=== PATIENT | female | born 1950 | race Caucasian/White ===

== ENCOUNTER → 2017-05-25 | Outpatient (CLI) | payer BC ==
--- NOTE | 2017-05-25 11:24 | MM ---
Reason for exam: screening (asymptomatic). Last mammogram was performed 2 years and 5 months ago. History: Patient is postmenopausal and had first child at age 33. Took hormonal contraceptives for 11 years. Took estrogen for 3 years beginning at age 51. Physical Findings: A clinical breast exam by your physician is recommended on an annual basis and results should be correlated with mammographic findings. MG 3D Screening Mammo W/Cad Bilateral CC and MLO view(s) were taken. XCCL view(s) were taken of the left breast. Prior study comparison: December 25, 2014, bilateral MG screening mammo w CAD. October 20, 2013, bilateral digital screening mammo w/CAD. The breast tissue is almost entirely fat. There is chronic nodularity bilaterally. No significant changes when compared with prior studies. ASSESSMENT: Benign, BI-RAD 2 RECOMMENDATION: Routine screening mammogram of both breasts in 1 year.
== END | disposition home or self-care (01) ==
LOC: RADMAMWWP 07:19
PROVIDERS: ATTEND Family Medicine
DX: Z12.31 Encounter for screening mammogram for malignant neoplasm of breast (principal)
CPT/HCPCS: 77063; G0202

== ENCOUNTER → 2019-01-18 | Outpatient (CLI) | payer MEDICARE ==
--- NOTE | 2019-01-19 09:59 | MM ---
Reason for exam: screening (asymptomatic). Last mammogram was performed 1 year and 8 months ago. History: Patient is postmenopausal and had first child at age 33. Took hormonal contraceptives for 11 years. Took estrogen for 3 years beginning at age 51. Physical Findings: A clinical breast exam by your physician is recommended on an annual basis and results should be correlated with mammographic findings. MG 3D Screening Mammo W/Cad Bilateral CC and MLO view(s) were taken. Prior study comparison: May 25, 2017, bilateral MG 3d screening mammo w/cad. December 25, 2014, bilateral MG screening mammo w CAD. There are scattered fibroglandular densities. No significant changes when compared with prior studies. ASSESSMENT: Benign, BI-RAD 2 RECOMMENDATION: Routine screening mammogram of both breasts in 1 year.
== END | disposition home or self-care (01) ==
LOC: RADMAMWWP 07:12
PROVIDERS: ATTEND Family Medicine
DX: Z12.31 Encounter for screening mammogram for malignant neoplasm of breast (principal)
CPT/HCPCS: 77063; 77067

== ENCOUNTER → 2020-04-12 | Outpatient (CLI) | payer MEDICARE ==
--- NOTE | 2020-04-12 13:38 | CT ---
EXAMINATION TYPE: CT abdomen pelvis wo con DATE OF EXAM: 04/12/2020 HISTORY: Right sided flank pain CT DLP: 2645.1 mGycm. Automated Exposure Control for Dose Reduction was Utilized. TECHNIQUE: CT scan of the abdomen and pelvis is performed without oral or IV contrast. COMPARISON: Prior CT abdomen January 30, 2015 FINDINGS: Within the limitations of a non-contrast study, the following observations are made. LUNG BASES: No significant abnormality is appreciated. LIVER/GB: Cholecystectomy clips are redemonstrated. PANCREAS: No significant abnormality is seen. SPLEEN: No significant abnormality is seen. ADRENALS: No significant abnormality is seen. KIDNEYS: No renal stones or hydronephrosis is seen bilaterally. No intraluminal calculi in the poorly distended bladder. BOWEL: Stable small sized hiatal hernia. Scattered diverticula most prominent in the sigmoid colon. N o CT evidence for acute diverticulitis. Normal-appearing appendix from base of cecum. Metallic 5 mm d ensity near junction of third and portion of duodenum axial image 42 could reflect ingested foreign b alfonso or possible nondigested pill. Correlate clinically. GENITAL ORGANS: A few scattered pelvic phleboliths. Uterus surgically absent markedly atrophic. LYMPH NODES: No greater than 1cm abdominal or pelvic lymph nodes are appreciated. OSSEOUS STRUCTURES: Slight grade 1 anterolisthesis L3 on L4. Mild to moderate multilevel spurring in the lower thoracic spine. OTHER: Stable tiny fat-containing umbilical hernia. IMPRESSION: No renal stones or hydronephrosis is seen bilaterally. Source of right-sided flank pain n ot identified. Attention to duodenum as detailed above otherwise fairly unremarkable study.
== END | disposition home or self-care (01) ==
LOC: RADCTMAIN 11:28
PROVIDERS: ATTEND Family Medicine
DX: R10.9 Unspecified abdominal pain (principal)
CPT/HCPCS: 74176

== ENCOUNTER → 2021-10-13 | Outpatient (CLI) | payer MEDICARE ==
--- NOTE | 2021-10-13 12:08 | ECHOF ---
Referral Reason:I10 essential hypertention MEASUREMENTS -------- HEIGHT: 175.3 cm WEIGHT: 154.2 kg BP: 120/80 RVIDd: 2.9 cm (< 3.3) IVSd: 1.1 cm (0.6 - 1.1) LVIDd: 4.6 cm (3.9 - 5.3) LVPWd: 1.1 cm (0.6 - 1.1) IVSs: 1.9 cm LVIDs: 3.4 cm LVPWs: 1.8 cm LA Diam: 3.3 cm (2.7 - 3.8) LAESV Index (A-L): 18.67 ml/m Ao Diam: 3.2 cm (2.0 - 3.7) AV Cusp: 1.8 cm (1.5 - 2.6) MV EXCURSION: 19.783 mm (> 18.000) MV EF SLOPE: 87 mm/s (70 - 150) EPSS: 0.4 cm MV E Edilberto: 0.71 m/s MV DecT: 347 ms MV A Edilberto: 0.90 m/s MV E/A Ratio: 0.79 RAP: 5.00 mmHg RVSP: 19.96 mmHg FINDINGS -------- Sinus rhythm. This was a technically adequate study. The left ventricular size is normal. There is borderline concentric left ventricular hypertrophy. Overall left ventricular systolic function is normal with, an EF between 60 - 65 %. The right ventricle is normal in size. Normal LA size by volume 22+/-6 ml/m2. The right atrium is normal in size. Aneurysmal Interatrial septum. The aortic valve is trileaflet, and appears structurally normal. No aortic stenosis or regurgitation. The mitral valve is normal. Trace tricuspid regurgitation present. Trace/mild (physiologic) pulmonic regurgitation. The aortic root size is normal. Normal inferior vena cava with normal inspiratory collapse consistent with estimated right atrial pre ssure of 5 mmHg. There is no pericardial effusion. CONCLUSIONS -------- 1. The left ventricular size is normal. 2. There is borderline concentric left ventricular hypertrophy. 3. Overall left ventricular systolic function is normal with, an EF between 60 - 65 %. 4. Aneurysmal Interatrial septum. 5. The aortic valve is trileaflet, and appears structurally normal. No aortic stenosis or regurgitati on. 6. Trace tricuspid regurgitation present. 7. Trace/mild (physiologic) pulmonic regurgitation. 8. There is no pericardial effusion. [employer]ARD[employer] FLOOR INSTALLER: Keturah Rosa RDCS
== END | disposition home or self-care (01) ==
LOC: RADECHMAIN 07:57
PROVIDERS: ATTEND Family Medicine
DX: I08.1 Rheumatic disorders of both mitral and tricuspid valves (principal)
CPT/HCPCS: 93005; 93306

== ENCOUNTER → 2021-12-09 | Outpatient (CLI) | payer MEDICARE ==
--- NOTE | 2021-12-11 11:16 | MM ---
Reason for exam: screening (asymptomatic). Last mammogram was performed 2 years and 11 months ago. History: Patient is postmenopausal and had first child at age 33. Took hormonal contraceptives for 11 years. Took estrogen for 3 years beginning at age 51. Physical Findings: A clinical breast exam by your physician is recommended on an annual basis and results should be correlated with mammographic findings. MG 3D Screening Mammo W/Cad Bilateral CC, MLO, and XCCL view(s) were taken. Prior study comparison: January 18, 2019, bilateral MG 3d screening mammo w/cad. May 25, 2017, bilateral MG 3d screening mammo w/cad. There are scattered fibroglandular densities. No significant changes when compared with prior studies. ASSESSMENT: Negative, BI-RAD 1 RECOMMENDATION: Routine screening mammogram of both breasts in 1 year.
== END | disposition home or self-care (01) ==
LOC: RADMAMWWP 07:13
PROVIDERS: ATTEND Family Medicine
DX: Z12.31 Encounter for screening mammogram for malignant neoplasm of breast (principal); Z78.0 Asymptomatic menopausal state
CPT/HCPCS: 77063; 77067

== ENCOUNTER → 2022-12-30 | Outpatient (CLI) | payer MEDICARE ==
--- NOTE | 2022-12-30 09:07 | MM ---
Reason for Exam: Screening (asymptomatic). Last mammogram was performed 1 year(s) and 1 month(s) ago. Patient History: Menarche at age 14. First Full-Term at age 33. Late child-bearing (after 32). Left ovary removed at age 51. Right ovary removed at age 51. Hysterectomy at age 51. Postmenopausal. Estrogen, starting at age 51 for 3 years. Patient used Hormonal Contraceptives for 11 years. Risk Values: Claire 5 year model risk: 2.4%. NCI Lifetime model risk: 6.9%. Prior Study Comparison: 05/25/2017 Bilateral Screening Mammogram, [facility]. 01/18/2019 Bilateral Screening Mammogram, [facility]. 12/09/2021 Bilateral Screening Mammogram, [facility]. Tissue Density: The breast tissue is almost entirely fat. Findings: Analyzed By CAD. There is no suspicious group of microcalcifications or new suspicious mass in either breast. Overall Assessment: Negative, BI-RAD 1 Management: Screening Mammogram of both breasts in 1 year. A clinical breast exam by your physician is recommended on an annual basis and results should be correlated with mammographic findings. [facility] will attempt to contact patient to return for supplemental views and ultrasound if indicated. Electronically signed and approved by: Heber Stubbs DO
== END | disposition home or self-care (01) ==
LOC: RADMAMWWP 06:59
PROVIDERS: ATTEND Family Medicine
DX: Z12.31 Encounter for screening mammogram for malignant neoplasm of breast (principal); Z78.0 Asymptomatic menopausal state
CPT/HCPCS: 77063; 77067

== ENCOUNTER → 2024-01-13 | Outpatient (CLI) | payer MEDICARE ==
--- NOTE | 2024-01-13 22:19 | MM ---
Reason for Exam: Screening (asymptomatic). Last screening mammogram was performed 12 month(s) ago. Patient History: Menarche at age 14. First Full-Term at age 33. Late child-bearing (after 32). Left ovary removed at age 51. Right ovary removed at age 51. Hysterectomy at age 51. Postmenopausal. Estrogen, starting at age 51 for 3 years. Patient used Hormonal Contraceptives for 11 years. Risk Values: Claire 5 year model risk: 2.4%. NCI Lifetime model risk: 6.6%. Prior Study Comparison: 01/18/2019 Bilateral Screening Mammogram, [facility]. 12/09/2021 Bilateral Screening Mammogram, [facility]. 12/30/2022 Bilateral MG 3D screening mammo w/cad, [facility]. Tissue Density: There are scattered fibroglandular densities. Findings: Analyzed By CAD. Bilateral intramammary lymph nodes are present bilaterally. A few benign round calcifications are also again seen. There is no suspicious group of microcalcifications or new suspicious mass in either breast. Overall Assessment: Benign, BI-RAD 2 Management: Screening Mammogram of both breasts in 1 year. . Patient should continue monthly self-breast exams. A clinical breast exam by your physician is recommended on an annual basis. This exam should not preclude additional follow-up of suspicious palpable abnormalities. Note on Claire scores and lifetime risk: 1. A Claire score greater than 3% is considered moderate risk. If this is the case, consider specialist referral to assess eligibility for a risk reducing agent. 2. If overall lifetime risk for the development of breast cancer is 20% or higher, the patient may qualify for future screening with alternating mammogram and breast MRI. Electronically signed and approved by: Sarai Malloy M.D. Radiologist
== END | disposition home or self-care (01) ==
LOC: RADMAMWWP 07:07
PROVIDERS: ATTEND Family Medicine
DX: Z12.31 Encounter for screening mammogram for malignant neoplasm of breast (principal); Z78.0 Asymptomatic menopausal state
CPT/HCPCS: 77063; 77067

== ENCOUNTER 2024-02-08 18:20 | Emergency (ER) | payer OTHER, MEDICARE ==
[2024-02-08 18:31] VITALS: TEMP 97.4
[2024-02-08] MEDS: KETOROLAC 15 MG/ML 1 ML VIAL IM STA (18:39)
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
[2024-02-08 20:00] VITALS: BP 151/88; PULSE 76; RESP 19
== END 2024-02-08 19:51 | disposition home or self-care (01) ==
LOC: EC 18:20
DX: S39.012A Strain of muscle, fascia and tendon of lower back, initial encounter (principal); S46.911A Strain of unspecified muscle, fascia and tendon at shoulder and upper arm level, right arm, initial encounter; I10 Essential (primary) hypertension; Z79.899 Other long term (current) drug therapy; Z88.1 Allergy status to other antibiotic agents; Z91.041 Radiographic dye allergy status; Z91.013 Allergy to seafood; Z91.011 Allergy to milk products; Z88.8 Allergy status to other drugs, medicaments and biological substances; Z90.49 Acquired absence of other specified parts of digestive tract; V49.9XXA Car occupant (driver) (passenger) injured in unspecified traffic accident, initial encounter; Y92.410 Unspecified street and highway as the place of occurrence of the external cause
CPT/HCPCS: 72110; 73030; 99284; 96372; J1885

== ENCOUNTER → 2024-02-10 | Outpatient (CLI) | payer MEDICARE ==
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
== END | disposition home or self-care (01) ==
LOC: RADUSWWP 16:25
PROVIDERS: ATTEND Family Medicine
DX: K11.8 Other diseases of salivary glands (principal); R22.1 Localized swelling, mass and lump, neck
CPT/HCPCS: 76536

== ENCOUNTER → 2025-05-22 | Outpatient (CLI) | payer MEDICARE ==
--- NOTE | 2025-05-22 10:41 | US ---
EXAMINATION TYPE: US venous doppler duplex LE LT DATE OF EXAM: 05/22/2025 10:35 AM COMPARISON: 2011 CLINICAL INDICATION: Female, 75 years old with history of R60.0 EDEMA; Edema and pain left leg, Pain TECHNIQUE: The lower extremity deep venous system is examined utilizing real time linear array sonog carroll with graded compression, color doppler sonography, and spectral doppler. SIDE PERFORMED: Left FINDINGS: VESSELS IMAGED: Common Femoral Vein Deep Femoral Vein Greater Saphenous Vein * Femoral Vein Popliteal Vein Small Saphenous Vein * Proximal Calf Veins (* superficial vessels) Left Leg: Negative for DVT, Color Doppler imaging shows patency of the vessels. Spectral waveforms a re within normal limits. IMPRESSION: No evidence for DVT within the left lower extremity imaged from the groin to the upper calf. [facility], , 05/22/2025 10:39 AM
== END | disposition home or self-care (01) ==
LOC: RADUSWWP 10:06
PROVIDERS: ATTEND Emergency Medicine
DX: R60.0 Localized edema (principal)